=== PATIENT | male | born 1985 | race Caucasian/White ===

== ENCOUNTER 2021-02-10 03:17 | Emergency (ER) | payer SELFPAY ==
[~2021-02-10] VITALS: Ht 167.6 cm; Wt 68.0 kg
[2021-02-10 03:20] VITALS: BP 115/65
== END 2021-02-10 05:40 | disposition home or self-care (01) ==
LOC: EDBD → ER 03:19
DX: R07.89 Other chest pain (principal); F10.10 Alcohol abuse, uncomplicated; F17.200 Nicotine dependence, unspecified, uncomplicated; Y90.9 Presence of alcohol in blood, level not specified; Z59.0 Homelessness

== ENCOUNTER 2021-02-10 12:11 | Emergency (ER) | payer MEDICAID ==
[~2021-02-10] VITALS: Ht 167.6 cm; Wt 68.0 kg
[2021-02-10 12:21] VITALS: BP 114/95
--- NOTE | 2021-02-10 12:27 | NUR ---
Patient given written and verbal discharge instructions. Patient refused to sign discharg paper. Patient is ambulatory with steady gait. Refuses offer of custodial placement. Patient given list of available shelters in surrounding area. and [facility].
--- NOTE | 2021-02-10 13:55 | NUR ---
SW attempted to meet with pt. for ETOH use & HOMELESSNESS. However, pt. has already departed.
== END 2021-02-10 12:27 | disposition home or self-care (01) ==
LOC: ER 12:11
DX: F10.20 Alcohol dependence, uncomplicated (principal); F17.200 Nicotine dependence, unspecified, uncomplicated; Y90.9 Presence of alcohol in blood, level not specified; Z59.0 Homelessness

== ENCOUNTER 2021-08-19 12:25 | Emergency (ER) | payer MEDICAID ==
[~2021-08-19] VITALS: Ht 167.6 cm; Wt 63.5 kg
[2021-08-19 12:57] VITALS: BP 123/66
--- NOTE | 2021-08-19 12:57 | NUR ---
PT BIBSELF FROM HOME C/O sorethroat, body aches and fever x 2 days. also c/o L buttock pain,+abscess/ PT A/OX4. TOLERATING R/A WELL WITH NO SOB AT 99%. CONNECTED PT TO POX AND MONITOR.
[2021-08-19] MEDS ORDERED: IV NS 0.9% 1,000 ML BAG IV ONE (13:30)
--- NOTE | 2021-08-19 13:30 | NUR ---
RAC #[id number] S/L; PATENT AND INTACT. BLOOD COLLECTED AND GIVEN TO LAB
--- NOTE | 2021-08-19 13:37 | NUR ---
COVID ANTIGEN SWAB COLLECTED AND SENT TO LAB
[2021-08-19] MEDS ORDERED: ACETAMINOPHEN ES 500 MG TABLET ONE (13:44)
[2021-08-19 13:49] LABS: BASOPHILS % (AUTO) 0.4 % (0.0-2.0); EOSINOPHILS % (AUTO) 2.6 % (0.0-6.0); HEMATOCRIT 41 % (39-51); HEMOGLOBIN 13.9 g/dL (13.5-17.5); LYMPHOCYTES # (AUTO) 1.4 K/uL (0.8-4.8); LYMPHOCYTES % (AUTO) 13.7 % (20.0-44.0); MEAN CORPUSCULAR HGB CONC 34 g/dl (31.0-36.0); MEAN CORPUSCULAR VOLUME 94 fL (80-96); MONOCYTES # (AUTO) 1.1 K/uL (0.1-1.30); MONOCYTES % (AUTO) 10.4 % (2.0-12.0); NEUTROPHILS # (AUTO) 7.4 K/uL (1.8-8.9); NEUTROPHILS % (AUTO) 72.9 % (43.0-81.0); PLATELET COUNT (AUTO) 356 K/uL (150-450); WHITE BLOOD COUNT (AUTO) 10.2 K/uL (4.3-11.0)
[2021-08-19] MEDS ORDERED: ACETAMINOPHEN ES 500 MG TABLET PO ONE (14:00)
[2021-08-19 14:02] LABS: ALBUMIN 3.4 g/dL (3.4-5.0); BILIRUBIN,DIRECT 0.1 mg/dL (0.0-0.2); BILIRUBIN,TOTAL 0.3 mg/dL (0.2-1.0); CALCIUM, SERUM 8.1 mg/dL (8.5-10.1); CREATININE 0.9 mg/dL (0.6-1.3); POTASSIUM 3.9 mmol/L (3.5-5.1); TOTAL PROTEIN, SERUM 7.4 g/dL (6.4-8.2)
--- NOTE | 2021-08-19 14:45 | NUR ---
STREP SWAB, INFLUENZA SWAB, AND URINE COLLECTED AND SENT TO LAB
[2021-08-19] MEDS ORDERED: IBUPROFEN 400 MG TABLET PO ONE (15:00)
--- NOTE | 2021-08-19 15:07 | NUR ---
Patient does not wish to proceed with medical care recommended by Dr. KATZ. Patient given information related to possible complications, up to and including , which could occur as a result of leaving the hospital at this time. Patient verbalizes understanding of risks involved due to leaving against medical advice. Patient has signed AMA form. IV DC WITH NO ACTIVE BLEEDING
[2021-08-19 15:17] LABS: BILIRUBIN,URINE NEGATIVE (NEGATIVE); COLOR,URINE YELLOW (YELLOW); LEUKOCYTE ESTERASE ,URINE NEGATIVE (NEGATIVE); NITRITE, URINE NEGATIVE (NEGATIVE); PROTEIN,URINE NEGATIVE (NEGATIVE); UGLUCOSE NEGATIVE (NEGATIVE); UROBILINOGEN,URINE 0.2 EU/dL (0.2)
== END 2021-08-19 15:07 | disposition left against medical advice (07) ==
LOC: ER 12:27
DX: M79.10 Myalgia, unspecified site (principal); R51.9 Headache, unspecified; Z59.02 Unsheltered homelessness; L02.31 Cutaneous abscess of buttock; R74.01 Elevation of levels of liver transaminase levels; Z53.29 Procedure and treatment not carried out because of patient's decision for other reasons; Z20.822 Contact with and (suspected) exposure to COVID-19
CPT/HCPCS: 36415; 80048; 80076; 81003; 83690; 85025; 87070; 87426; 87804; 87880; 96360; 99284; C9803; 86403-TC